=== PATIENT | female | born 1960 | race Caucasian/White ===

== ENCOUNTER → 2016-05-24 | Outpatient (CLI) | payer OTHER ==
[2016-05-24 12:33] LABS: HEMOGLOBIN 13.2 gm/dl (12.3-15.3); RED BLOOD COUNT 5.04 M/UL (4.00-5.10); WHITE BLOOD COUNT 4.7 K/UL (4.5-11.0)
[2016-05-24 13:25] LABS: BUN/CREATININE RATIO 10 (0-10)
== END ==
LOC: LAB 11:49
PROVIDERS: Internal Medicine Cardiovascular Disease
DX: I10 Essential (primary) hypertension (principal); E78.2 Mixed hyperlipidemia; Z79.899 Other long term (current) drug therapy
CPT/HCPCS: 36415; 80053; 80061; 82550; 85025

== ENCOUNTER 2016-07-05 11:39 | Emergency (ER) | payer MEDICARE | END 2016-07-05 15:35 | disposition home or self-care (01) | LOC: ER1 11:39 | DX: S09.90XA Unspecified injury of head, initial encounter (principal); S13.4XXA Sprain of ligaments of cervical spine, initial encounter; S60.512A Abrasion of left hand, initial encounter; E04.1 Nontoxic single thyroid nodule; I10 Essential (primary) hypertension; W01.0XXA Fall on same level from slipping, tripping and stumbling without subsequent striking against object, initial encounter; Y92.009 Unspecified place in unspecified non-institutional (private) residence as the place of occurrence of the external cause; Z23 Encounter for immunization | CPT/HCPCS: 70450; 72125; 90471; 90714; 99284 ==